=== PATIENT | male | born 1965 | race Caucasian/White ===

== ENCOUNTER 2021-11-14 16:24 | Outpatient (CLI) | payer BC, SELFPAY ==
[2021-11-14 21:26] LABS: Albumin* 4.7 g/dL (3.3-5.0); Chloride* 102 mmol/L (96-114); Potassium* 4.2 mmol/L (3.6-5.1); Sodium* 139 mmol/L (135-149)
[2021-11-14 21:28] LABS: Bilirubin Total* 0.5 mg/dL (0.1-1.5); Carbon Dioxide* 26 mmol/L (20-32); Creatinine* 1.3 mg/dL (0.5-1.5); Estimated Glomerular Filt Rate 65 ml/min
[2021-11-14 21:29] LABS: Alanine Aminotransferase* 17 U/L (4-50); Alkaline Phosphatase* 78 U/L (40-150); Aspartate Amino Transferase* 25 U/L (12-35); Blood Urea Nitrogen* 19 mg/dL (7-30); Calcium* 9.2 mg/dL (8.4-10.6); Glucose* 95 mg/dL (60-115); Total Protein* 7.5 g/dL (6.0-8.3)
== END 2021-11-14 16:25 | disposition home or self-care (01) ==
PROVIDERS: PCP Family Medicine; Visit Provider Family Medicine
DX: R53.83 Other fatigue (principal); E03.9 Hypothyroidism, unspecified; E78.00 Pure hypercholesterolemia, unspecified; F41.8 Other specified anxiety disorders; R73.03 Prediabetes
CPT/HCPCS: 80053; 84443

== ENCOUNTER 2022-11-14 11:25 | Outpatient (CLI) | payer BC, SELFPAY ==
--- OUTSIDE RECORDS SUMMARY | 2022-11-15 12:16 | XMS_ITS | Continuity of Care Document ---
Author Name Unknown Organization [facility] Address [address] [address] [place] [address] Phone Care Team Providers Care Import Coordinator Name Role Phone Unavailable Unavailable Unavailable Advance Directives Directive Yes / No Effective Date File Name No Information Encounters Encounter Description Practice Location Reason(s) For Visit Diagnoses Date Provider Providers Copied on Encounter [facility], [address] [address], [place], [place], [id number], tel:[phone] [facility] No Information No Information Referring Provider: Barby Sherman MD, [address] [place] [address], [id number]. tel:[phone] Family History Family Member Type Diagnosis Age At Onset No Information Payers Payer name Insurance type Covered green party ID Authoriza tion(s) No Information Social History Type Description Quantity Date Captured Comments Sex Male Smoking Status No Information Chief Complaint And Reason For Visit No Information Reason For Referral Reason For Referral No Information History Of Present Illness Encounter Date Complaint History Of Prese nt Illness No Information Functional Status Date Functional Assessmen t No Information Instructions Date Instruction Additional Infor mation No Information Assessments Type Assessment Date No Information Patient Care Teams Name Effective Dates (start - stop) Status Members No Information
== END 2022-11-14 11:26 | disposition home or self-care (01) ==
LOC: NFLDREF 11-15 12:14
PROVIDERS: PCP Family Medicine; Referring Provider Family Medicine; Visit Provider Family Medicine
DX: Z00.00 Encounter for general adult medical examination without abnormal findings (principal); E78.00 Pure hypercholesterolemia, unspecified; E03.9 Hypothyroidism, unspecified; R73.03 Prediabetes; N40.0 Benign prostatic hyperplasia without lower urinary tract symptoms; F43.10 Post-traumatic stress disorder, unspecified; F41.8 Other specified anxiety disorders; R53.83 Other fatigue; Z12.5 Encounter for screening for malignant neoplasm of prostate
CPT/HCPCS: 80053; 80061; 84153; 84443

== ENCOUNTER 2023-02-04 08:33 | Outpatient (CLI) | payer BC, SELFPAY ==
--- OUTSIDE RECORDS SUMMARY | 2023-02-05 06:23 | XMS_ITS | Continuity of Care Document ---
Author Name Unknown Organization [facility] Address [address] [address] [place] [address] Phone Care Team Providers Care Ingot Car Operator Name Role Phone Unavailable Unavailable Unavailable Advance Directives Directive Yes / No Effective Date File Name No Information Encounters Encounter Description Practice Location Reason(s) For Visit Diagnoses Date Provider Providers Copied on Encounter [facility], [address] [address], [place], [place], [id number], tel:[phone] [facility] No Information No Information Referring Provider: Barby Sherman MD, [address] [place] [address], [id number]. tel:[phone] Family History Family Member Type Diagnosis Age At Onset No Information Payers Payer name Insurance type Covered alliance party ID Authoriza tion(s) No Information Social [...]
== END 2023-02-04 08:34 | disposition home or self-care (01) ==
LOC: NFLDREF 02-05 06:22
PROVIDERS: PCP Family Medicine; Referring Provider Family Medicine; Visit Provider Family Medicine
DX: E78.00 Pure hypercholesterolemia, unspecified (principal); R68.82 Decreased libido; E03.9 Hypothyroidism, unspecified
CPT/HCPCS: 80061; 80076; 84270; 84402; 84403; 84443

== ENCOUNTER 2023-03-05 16:24 | Outpatient (CLI) | payer BC, SELFPAY ==
--- OUTSIDE RECORDS SUMMARY | 2023-03-05 16:26 | XMS_ITS | Continuity of Care Document ---
Author Name Unknown Organization [facility] Address [address] [address] [place] [address] Phone Care Team Providers Care Creative Art Therapist Name Role Phone Unavailable Unavailable Unavailable Advance Directives Directive Yes / No Effective Date File Name No Information Encounters Encounter Description Practice Location Reason(s) For Visit Diagnoses Date Provider Providers Copied on Encounter [facility], [address] [address], [place], [place], [id number], tel:[phone] [facility] No Information No Information Referring Provider: Barby Sherman MD, [address] [place] [address], [id number]. tel:[phone] Family History Family Member Type Diagnosis Age At Onset No Information Payers Payer name Insurance type Covered constitution party ID Authoriza tion(s) No Information Social [...]
== END 2023-03-05 16:25 | disposition home or self-care (01) ==
LOC: LKVREF 16:24
PROVIDERS: PCP Family Medicine; Visit Provider Family Medicine
DX: R10.9 Unspecified abdominal pain (principal)
CPT/HCPCS: 80076

== ENCOUNTER 2023-03-17 08:12 | Outpatient (CLI) | payer BC, SELFPAY ==
--- OUTSIDE RECORDS SUMMARY | 2023-03-17 08:17 | XMS_ITS | Clinical Summary ---
Author Name Unknown Organization [facility] Address [address] [place] [address]. [place] [address] Care Team Providers Care Harmonic Analyst Name Role Phone DenitaBarby dhaliwal Sandeep Primary Care Provider [phone] Allergies Active Allergy Reactions Criticality Noted Date Comments Sulfa Antibiotics 11/23/2003 reaction as child Medications Medication Sig Dispensed Refills Start Date End Date Status Fexofenadine HCl (JYOTI PO) Take 180 mg by mouth every morning 0 Active TRAZODONE HCL POIndications:Inso mnia Take 25-50 mg by mouth At Bedtime 0 Active Mirtazapine (REMERON PO) 0 Active CLONAZEPAM PO 0 Active amoxicillin-clavul anate (AUGMENTIN) 875-125 MG per tabletIndications: Infective otitis externa, right Take 1 tablet by mouth 2 times daily 20 tablet 0 12/13/2017 Active Additional Information Patient not taking.Reported on 10/28/2020 metFORMIN (GLUCOPHAGE-XR) 500 MG 24 hr tablet 0 09/04/2020 Active amitriptyline (ELAVIL) 10 MG tablet 0 10/19/2020 Active clonazePAM (KLONOPIN) 0.5 MG tablet 0 10/10/2020 Active benzonatate (TESSALON) 200 MG capsuleIndications :Viral URI Take 1 capsule (200 mg) by mouth 3 times daily as needed for cough 20 capsule 0 10/28/2020 Active Active Problems Problem Noted Date Diagnosed Date Alcohol dependence 06/13/2016 Severe episode of recurrent major depressive disorder, without psychotic features 12/14/2014 Nondependent alcohol abuse, in remission [address] [place] [address] [facility] 11/15/2012 Overview: EMERGENCY CARE PLAN Presenting Problem Signs and Symptoms Treatment Plan Questions or conerns during clinic hours I will call the clinic directly Questions or conerns outside clinic hours I will call the 24 hour nurse line at [phone] Patient needs to schedule an appointment I will call the 24 hour scheduling team at [phone] or clinic directly Same day treatment I will call the clinic first, nurse line if after hours, urgent care and express care if needed Pt does not have an assigned clinic or provider at this time. MENTAL HEALTH 11/09/2012 Suicide attempt 11/07/2012 CARDIOVASCULAR SCREENING; LDL GOAL LESS THAN 160 04/18/2009 Social phobia 11/29/2007 Generalized anxiety disorder 10/06/2005 Depressive disorder, not elsewhere classified Family History Medical History Relation Comments Depression Father anxiety Depression Mother Anesthesia Reaction No family hx of Blood Disease No family hx of C.A.D. No family hx of Cancer - colorectal No family hx of Prostate Cancer No family hx of Relation Status Comments Father (Age 55) small plane cr july Mother Social History Tobacco Use Types Packs/Day Years Used Date Smoking Tobacco: Never Alcohol Use Standard Drinks/Week Comments Yes 0 (1 standard drink = 0.6 oz pur e alcohol) social Adolescent Education Answer Date Record ed Getting School Help Needed Not on file 12/13 Sex and Gender Information Value Date Recorded Sex Assigned at Not on file Gender Identity Not on file Sexual Orientation Not on file Last Filed Vital Signs Vital Sign Reading Time Taken Comments Blood Pressure 124/82 10/28/2020 11:26 AM CDT Pulse 99 10/28/2020 11:26 AM CDT Temperature 37.6 ??C (99.6 ??F) 10/28/2020 11:26 AM C DT Respiratory Rate 16 06/13/2016 6:19 PM CDT Oxygen Saturation 97% 10/28/2020 11:26 AM CDT Inhaled Oxygen Concentration - - Weight 93 kg (205 lb) 10/28/2020 11:26 AM CDT Height 180.3 cm (5' 11) 06/13/2016 12:31 PM CDT Body Mass Index 28.59 06/13/2016 12:31 PM CDT Plan of Treatment Health Maintenance Due Date Last Done Comments ADVANCE CARE PLANNING 1966 ANNUAL REVIEW OF HM ORDERS 1966 CT COLONOGRAPHY 1966 DEPRESSION ACTION PLAN 1966 FIT 1966 FLEX SIG 1966 LIPID 1966 PHQ-9 1966 sDNA (Cologuard) 1966 COVID-19 Vaccine (#1) 1966 Pneumococcal Vaccine: Pediat rics (0 to 5 Years) and At-Risk Patients (6 to 64 Years) (1 - PCV) 1972 COLONOSCOPY 1976 COLORECTAL CANCER SCREENING 1976 HIV SCREENING 1981 HEPATITIS C SCREENING 1984 DTAP/TDAP/TD IMMUNIZATION (1 - Tdap) 11/22/1994 11/21/1994 HEPATITIS B IMMUNIZATION (2 of 3 - 19+ 3-dose series) 10/02/1999 09/04/1999 ZOSTER IMMUNIZATION (1 of 2) 2016 YEARLY PREVENTIVE VISIT 07/31/2018 07/31/2017 INFLUENZA VACCINE (#1) 2022 HPV IMMUNIZATION Aged Out No longer e ligible based on patient's age to complete this topic IPV IMMUNIZATION Aged Out No longer e ligible based on patient's age to complete this topic MENINGITIS IMMUNIZATION Aged Out No l onger eligible based on patient's age to complete this topic RSV MONOCLONAL ANTIBODY Aged Out No l onger eligible based on patient's age to complete this topic Advance Directives For more information, please contact: [phone] Latest Code Status on File Code Status Date Activated Date Inactivated Comments Full Code 11/09/2012 6:11 PM 11/10/2012 6:43 PM Code Status History Code Status Date Activated Date Inactivated Comments Full Code 11/07/2012 5:36 PM 11/09/2012 6:11 PM Care Teams Harmonic Analyst Relationship Specialty Start Date End Date Barby Sherman PCP - General Internal Medicine 06/13/16
--- OUTSIDE RECORDS SUMMARY | 2023-03-17 08:17 | XMS_ITS | Encounter Summary ---
Author Name Unknown Organization [facility] Address [address] [place] [address]. [place] [address] Care Team Providers Care Cargo Worker Name Role Phone Ayan Aguiar MD Primary Care Provider [phone] [facility] [place] Primary [facility] P [facility] Barby Sherman Primary Care Provider [phone] Encounter Details Date Type Department Care Team (Late st Contact Info) Description 09/22/[address] [address] Ayan Aguiar MD [address] [place] [address] [facility] Social History Tobacco Use Types Packs/Day Years Used Date Smoking Tobacco: Never Alcohol Use Standard Drinks/Week Comments Yes 0 (1 standard drink = 0.6 oz pur e alcohol) social Sex and Gender Information Value Date Recorded Sex Assigned at Not on file Gender Identity Not on file Sexual Orientation Not on file documented as of this encounter Plan of Treatment Not on file documented as of this encounter Visit Diagnoses Diagnosis [facility] documented in this encounter Additional Health Concerns Infection Onset Date Last Indicated Resolved Time Rule Out COVID-19 10/28/2020 10/28/2020 10/28/2020 11:29 PM CDT COVID-19 10/28/2020 10/28/2020 11/18/2020 11:4 1 PM CDT documented as of this encounter Care Teams Cargo Worker Relationship Specialty Start Date End Date Ayan Aguiar MD [address] [place] [address] PCP - General 11/23/03 11/11/11 Clinic - [facility] Mont[facility] [address] [place] [address] PCP - General 11/12/11 06/12/16 Barby Sherman [address] [place] [address] PCP - General Internal Medicine 06/13/16 documented as of this encounter
--- OUTSIDE RECORDS SUMMARY | 2023-03-17 08:17 | XMS_ITS | Clinical Summary ---
Author Name Unknown Organization [facility] Address [place], [place] [address] Care Team Providers Care Private Security Guard Name Role Phone Pcp, No Primary Care Provider Unavailabl e Allergies Active Allergy Reactions Criticality Noted Date Comments Mold Extracts *Unknown 11/29/2012 Tested positive molds, on allergy test. Tree Nut *Unknown 11/29/2012 Tested positive Sulfa (Sulfonamide Antibiotics) Nausea And Vomiting 08/31/2007 Medications Medication Sig Dispensed Refills Start Date End Date Status mirtazapine (REMERON) 3.75 mg as quarter tablet Take by mouth. 0 Active metFORMIN (GLUCOPHAGE XR) 500 mg Extended-Release tablet 0 09/04/2020 Active finasteride (PROSCAR) 5 mg tablet Take 5 mg by mouth once daily. 0 11/25/2021 Active clonazePAM (KLONOPIN) 0.5 mg tablet 0 10/10/2020 Active vortioxetine (Trintellix) 5 mg tablet Take 1 Tablet (5 mg) by mouth once daily. 0 12/18/2021 Active sildenafiL, pulm.hypertension, (REVATIO) 20 mg tabletIndications:Ere ctile dysfunction of organic origin Take 2-3 tablets 30 minutes prior to sexual activity. 30 Tablet 1 12/22/2022 Active Active Problems Problem Noted Date Diagnosed Date PTSD (post-traumatic stress disorder) 12/18/2021 Major depressive disorder, r ecurrent, severe without psychotic features 12/14/2014 Alcohol abuse, in remission 02/07/2013 Social phobia 11/29/2007 Generalized anxiety disorder 10/06/2005 Resolved Problems Problem Noted Date Diagnosed Date Resolved Date ALCOHOLISM 11/16/2007 01/17/2008 Major depressive disorder, r ecurrent episode, mild 10/06/2005 01/17/2008 Other and unspecified alcoho l dependence, unspecified drinking behavior 12/18/2021 Encounters Date Type Department Care Team Description 12/22/2022 9:35 AM CDT Office Visit [facility] [address] [place] [address] Bebe Morse PA Erectile Dysfunction (Started x 1 week ) 12/22/2022 Telephone [facility] [address] [place] [address] Bebe Morse PA Medication Management (sildenafil citrate (VIAGRA) 50 mg tablet) 12/22/2022 Travel from Last 3 Months Immunizations Name Administration Dates Next Due Hepatitis B (Adult) 09/04/1999 Td (Age >=7 Years) 11/21/1994 Family History Medical History Relation Name Comments Alcohol/Drug Brother Drug Dependence Seizures Daughter 1 Carie Second, Autism too, multiple diagnoses Good Health Daughter 2 Chari Third Alcohol/Drug Father Alcohol Depende nce Psychiatric illness Father Anxiety Alcohol/Drug Maternal Aunt Psychiatric illness Maternal Aunt Alcohol/Drug Maternal Grandfather Other Maternal Grandfather Galo on's Stroke Maternal Grandfather in 60s Other Maternal Grandmother Psychiatric illness Maternal Grandmother Anxiety Other Mother Fibromyalgia Psychiatric illness Mother Depressi on Alcohol/Drug Paternal Grandfather Psychiatric illness Paternal Uncle Alcohol/Drug Sister Good Health Son Armond Oldest Relation Name Status Comments Brother Daughter 1 Carie Daughter 2 Chari [address] Maternal Aunt Maternal Grandfather Maternal Grandmother Mother Alive Paternal Grandfather Paternal Uncle Sister Son Armond Social History Tobacco Use Types Packs/Day Years Used Date Smoking Tobacco: Never Smokeless Tobacco: Never Tobacco Cessation:Counseling Given: Yes Alcohol Use Standard Drinks/Week Comments Yes 6 (1 standard drink = 0.6 oz pure alcohol) social, around 3-4 drinks twice per week PHQ-2 Answer Date Recorded PHQ-2 TOTAL SCORE 6 12/22/2022 Social Connections Answer Date Recorded Frequency of Communication with Friends and Fami ly 0 12/22/2022 Financial Resource Strain Answer Date R ecorded Difficulty of Paying Living Expenses 3 12/22/2022 Difficulty of Paying Living Expenses Not on file 12/22/2022 Food Insecurity Answer Date Recorded Worried About Running Out of Food in the Last Ye ar 1 12/22/2022 Transportation Needs Answer Date Record ed Lack of Transportation (Medical) 1 12/22/2022 Housing Stability Answer Date Recorded Unable to Pay for Housing in the Last Year 1 12/22/2022 Sex and Gender Information Value Date Recorded Sex Assigned at Not on file Gender Identity Not on file Sexual Orientation Not on file Obstetrics History Last Filed Vital Signs Vital Sign Reading Time Taken Comments Blood Pressure 118/76 12/22/2022 9:21 AM CDT Pulse 82 12/22/2022 9:21 AM CDT Temperature 36.5 ??C (97.7 ??F) 04/24/2014 4:53 PM CS T Respiratory Rate 16 12/17/2011 4:22 PM CDT Oxygen Saturation 97% 12/18/2021 9:26 AM CDT Inhaled Oxygen Concentration - - Weight 92.9 kg (204 lb 14.4 oz) 12/22/2022 9:21 AM CDT Height 180 cm (5' 10.87) 12/22/2022 9:21 AM CDT Body Mass Index 28.68 12/22/2022 9:21 AM CDT Plan of Treatment Health Maintenance Due Date Last Done Comments COVID-19 vaccine series (#1) 1966 Tdap 1977 Tetanus booster 11/21/2004 11/21/1994 Colonoscopy through age 75 2011 Lipids for age 45-75 06/13/2013 06/13/2008, 12/06/2007, 11/16/2007 Zoster (shingles) series for age 50+ (1 of 2) 2016 Influenza for age 50-64 11/07/2022 BMI (ht and wt on same day) for age 18+ 12/23/2023 12/22/2022, 12/18/2021 Depression screening for age 12+ 12/23/2023 12/22/2022, 12/22/2022, 03/28/2022, Additional history exists HIV for age 15-65 Completed 12/23/2013 Hepatitis C screening for age 18-79 Completed 12/23/2013 Pneumococcal series for age 6-64 Aged Out No longer eligible based on patient's age to complete this topic Advance Directives Documents on File Type Date Recorded Patient Sharepoint Admin Expl anation Healthcare Directive 09/01/2007 March 24, 1997 Latest Code Status on File Code Status Date Activated Date Inactivated Comments Full Code 08/31/2007 3:51 PM 09/01/2007 7:07 PM Care Teams Private Security Guard Relationship Specialty Start Date End Date Pcp, No . PCP - General 12/18/21
--- OUTSIDE RECORDS SUMMARY | 2023-03-17 08:17 | XMS_ITS | Encounter Summary ---
Author Name Unknown Organization [facility] Address [address] [place] [address]. [place] [address] Care Team Providers Care Water Treatment Plant Operator Name Role Phone Ayan Aguiar MD Primary Care Provider [phone] [facility] [place] [facility] Barby Sherman Primary Care Provider [phone] Encounter Details Date Type Department Care Team (Late st Contact Info) Description 08/31/2007 [address] [place] [address] Ayan Aguiar MD [address] [place] [address] 08/31/07 H&P/DISCHARGE SUMMARY Social History Tobacco Use Types Packs/Day Years [...] as of this encounter Visit Diagnoses Diagnosis [facility] documented in this encounter Additional Health Concerns Infection Onset Date Last Indicated Resolved Time Rule Out COVID-19 10/28/2020 10/28/2020 10/28/2020 11:29 PM CDT COVID-19 10/28/2020 10/28/2020 11/18/2020 11:4 1 PM CDT documented as of this encounter Care Teams Water Treatment Plant Operator Relationship Specialty Start Date End Date Ayan Aguiar MD [address] [facility] [address] PCP - General 11/23/03 11/11/11 Clinic - Her[facility] Montilla [address] [place] [address] PCP - General 11/12/11 06/12/16 Barby Sherman [address] [place] [address] [place] [address] PCP - General Internal Medicine 06/13/16 documented as of this encounter
--- OUTSIDE RECORDS SUMMARY | 2023-03-17 08:17 | XMS_ITS | Referral Summary ---
Author Name Unknown Organization [facility] Address [address] [place] [address]. [place] [address] Care Team Providers Care Cook Helper Name Role Phone DenitaBarby dhaliwal Sandeep Primary Care Provider [phone] Allergies Active Allergy Reactions Criticality Noted Date [...] features 12/14/2014 Nondependent alcohol abuse, in remission [address] [place] [address] Half-Way 11/15/2012 Overview: EMERGENCY CARE PLAN Presenting Problem Signs and Symptoms Treatment Plan Questions or conerns during clinic hours I will call the clinic directly Questions or conerns outside clinic hours I will call the 24 hour nurse line at [phone] Patient needs to schedule an appointment I will call the 24 hour scheduling team at [phone] or clinic directly Same day treatment I will call the clinic first, nurse line if after hours, urgent care and express care if needed Pt does not have an assigned clinic or provider at this time. MENTAL HEALTH 11/09/2012 Suicide attempt 11/07/2012 CARDIOVASCULAR SCREENING; LDL GOAL LESS THAN 160 04/18/2009 Social phobia 11/29/2007 Generalized anxiety disorder 10/06/2005 Depressive disorder, not elsewhere classified Social History Tobacco Use Types Packs/Day Years [...] 06/13/2016 12:31 PM CDT Plan of Treatment Not on file Advance Directives For more information, please contact: [phone] Latest Code Status on File Code Status Date Activated Date Inactivated Comments Full Code 11/09/2012 6:11 PM 11/10/2012 6:43 PM Code Status History Code Status Date Activated Date Inactivated Comments Full Code 11/07/2012 5:36 PM 11/09/2012 6:11 PM Care Teams Cook Helper Relationship Specialty Start Date End Date Barby Sherman PCP - General Internal Medicine 06/13/16
--- OUTSIDE RECORDS SUMMARY | 2023-03-17 08:17 | XMS_ITS | Clinical Summary ---
Author Name Unknown Organization [facility] Address [address] [place] [address] Care Team Providers Care Husbandry Person Name Role Phone Ric Pérez MD Primary Care Provider [phone] Source Comments You are receiving this document as you are listed as the primary care provider,follow-up provider, or the patient has been referred to you for consultation.This is in compliance with the Medicare andMedicaid EHR Incentive Program,which states Providers who transition their patient to another setting of careor provider of care or refers their patient to another provider of care shouldprovide summary care record for each transition of care or referral. [facility] Allergies Active Allergy Reactions Criticality Noted Date Comments Nuts Unknown 10/10/2015 Sulfa Antibiotics Nausea And Vomiting 6 I think vomiting. I don't really remember it was when I was little. Medications Medication Sig Dispensed Refills Start Date End Date Status mirtazapine (REMERON) 7.5 MG tablet Take 7.5 mg by mouth every evening. Takes half of a tablet 0 Active Active Problems Problem Noted Date Diagnosed Date Major depressive disorder, r ecurrent, severe without psychotic features 12/14/2014 Alcohol abuse, in remission 02/07/2013 Social phobia 11/29/2007 Generalized anxiety disorder 10/06/2005 Immunizations Name Administration Dates Next Due HepB Adult (Engerix-B, 20+ yrs, 3 dose series) 0 09/04/1999 Td 11/21/1994 Family History Medical History Relation Name Comments Alcohol Abuse Father Cancer Mother Heart Disease Mother Stroke Paternal Grandmother Relation Name Status Comments Father Mother Brother Alive Maternal Grandfather Maternal Grandmother Paternal Grandfather Paternal Grandmother Sister Alive Social History Tobacco Use Types Packs/Day Years Used Date Smoking Tobacco: Never Smokeless Tobacco: Never Alcohol Use Standard Drinks/Week Comments No 0 (1 standard drink = 0.6 oz pur e alcohol) Sex and Gender Information Value Date Recorded Sex Assigned at Not on file Gender Identity Not on file Sexual Orientation Not on file Last Filed Vital Signs Vital Sign Reading Time Taken Comments Blood Pressure 120/80 02/08/2018 3:44 PM SOLE CEMENTER Pulse 80 02/08/2018 3:44 PM SOLE CEMENTER Temperature 37.2 ??C (99 ??F) 02/08/2018 3:44 PM SOLE CEMENTER Respiratory Rate 16 10/14/2015 8:00 AM CDT Oxygen Saturation 99% 10/14/2015 8:00 AM CDT Inhaled Oxygen Concentration - - Weight 102.9 kg (226 lb 12.8 oz) 02/08/2018 3:44 PM SOLE CEMENTER Height 181.6 cm (5' 11.5) 07/31/2017 2:25 PM CD T Body Mass Index 31.19 07/31/2017 2:25 PM CDT Plan of Treatment Health Maintenance Due Date Last Done Comments Hep C Screening (Preventive Services) 1966 COVID-19 Vaccine (#1) 1966 HIV Screening (Preventive Services) 1982 DTaP/Tdap/Td (1 - Tdap) 11/22/1994 11/21/1994 HepB (2) 10/02/1999 09/04/1999 Zoster/Shingles (1 of 2) 2016 Adult Preventive Visit 07/31/2018 07/31/2017 PSA Screening Discussion 07/31/2018 07/31/2017 FIT Colon Cancer Screening 09/29/2018 09/29/2017 Cholesterol 07/31/2022 07/31/2017 Influenza (#1) 2022 HepA Aged Out No longer eligi ble based on patient's age to complete this topic Hib Aged Out No longer eligi ble based on patient's age to complete this topic IPV (Polio) Aged Out No longer eligi ble based on patient's age to complete this topic MCV4 Aged Out No longer eligi ble based on patient's age to complete this topic Pneumococcal Aged Out No longer eligi ble based on patient's age to complete this topic Advance Directives Latest Code Status on File Code Status Date Activated Date Inactivated Comments Full Code 10/10/2015 8:16 PM 10/14/2015 5:27 PM Care Teams Husbandry Person Relationship Specialty Start Date End Date Ric Pé[place] [address] [place] [address] PCP - General Family Practice 07/15/17
--- NOTE | 2023-03-17 08:45 | CRLHL7_ITS ---
For Patients: As a result of the Century Cures Act, medical imaging exams and procedure reports are released immediately into your electronic medical record. You may view this report before your referring provider. If you have questions, please contact your health care provider. INDICATION: Right upper quadrant pain. TECHNIQUE: Limited abdominal ultrasound. FINDINGS: Liver: No obvious mass. Gallbladder: No significant stones. Common bile duct: 4 mm. Pancreas: Partial visualization, no obvious abnormality. Right kidney: Unremarkable 10.5 cm. Aorta: Normal caliber. IVC: No visualized thrombus. No sonographic Dye sign. IMPRESSION: Unremarkable right upper quadrant ultrasound exam. Dictated by Tucker Moore MD @ 03/19/2023 9:40:44 AM (Electronically Signed)
== END 2023-03-17 08:13 | disposition home or self-care (01) ==
LOC: US 08:13
PROVIDERS: PCP Family Medicine; Visit Provider Family Medicine
DX: R10.11 Right upper quadrant pain (principal)
CPT/HCPCS: 76705

== ENCOUNTER 2023-04-21 11:25 | Outpatient (CLI) | payer BC, SELFPAY | END 2023-04-21 11:26 | disposition home or self-care (01) | LOC: LKVREF 11:39 | PROVIDERS: PCP Family Medicine; Visit Provider Family Medicine | DX: R30.0 Dysuria (principal); N39.0 Urinary tract infection, site not specified | CPT/HCPCS: 87491; 87591 ==

== ENCOUNTER 2024-05-31 08:32 | Outpatient (CLI) | payer BC, SELFPAY | END 2024-05-31 08:33 | disposition home or self-care (01) | PROVIDERS: PCP Family Medicine; Visit Provider Family Medicine | DX: E03.9 Hypothyroidism, unspecified (principal); R68.82 Decreased libido; E78.00 Pure hypercholesterolemia, unspecified; Z12.5 Encounter for screening for malignant neoplasm of prostate | CPT/HCPCS: 80053; 80061; 84270; 84402; 84403; 84443; G0103 ==

== ENCOUNTER 2024-07-26 09:17 | Outpatient (CLI) | payer BC, SELFPAY ==
--- NOTE | 2024-07-26 11:18 | P.ANES_ITS ---
Anesthesia Charges Start Date/Time Anesthesia Start Date: 07/26/24 Anesthesia Start Time: 10:48 Stop Date/Time Anesthesia Stop Date: 07/26/24 Anesthesia Stop Time: 11:16 Coding CPT Codes CPT Codes: ANES LWR INTST SCR COLSC - [id number] ([id number]) P2 - PATIENT W/MILD SYST DISEASE, QZ - ENTRANCE GUARD SVC W/O HYPERBARIC WELDER DIVER BY
--- NOTE | 2024-07-26 11:18 | W.ANESCHARGE ---
Anesthesia Charges Start Date/Time Anesthesia Start Date: 07/26/24 Anesthesia Start Time: 10:48 Stop Date/Time Anesthesia Stop Date: 07/26/24 Anesthesia Stop Time: 11:16 Coding CPT Codes CPT Codes: ANES LWR INTST SCR COLSC - [id number] ([id number]) P2 - PATIENT W/MILD SYST DISEASE, QZ - TECHNICAL INTERNSHIP SVC W/O RIB TRIM SEPARATOR BY
== END 2024-07-26 09:18 | disposition home or self-care (01) ==
LOC: OP CLINIC 09:17
PROVIDERS: PCP Family Medicine; Visit Provider Surgery
DX: Z12.11 Encounter for screening for malignant neoplasm of colon (principal); D12.3 Benign neoplasm of transverse colon; R19.5 Other fecal abnormalities
CPT/HCPCS: 00812; 45385; 88305; J2704

== ENCOUNTER 2024-12-12 10:48 | Outpatient (CLI) | payer BC, SELFPAY | END 2024-12-12 10:49 | disposition home or self-care (01) | LOC: NFLDREF 12-25 04:20 | PROVIDERS: PCP Family Medicine; Referring Provider Family Medicine; Visit Provider Family Medicine | DX: R53.83 Other fatigue (principal); R79.89 Other specified abnormal findings of blood chemistry; R68.82 Decreased libido | CPT/HCPCS: 80061; 80076; 84270; 84402; 84403 ==

== ENCOUNTER 2024-12-23 10:33 | Outpatient (CLI) | payer BC, SELFPAY | END 2024-12-23 10:34 | disposition home or self-care (01) | LOC: NFLDREF 12-24 17:49 | PROVIDERS: PCP Family Medicine; Referring Provider Family Medicine; Visit Provider Family Medicine | DX: R97.20 Elevated prostate specific antigen [PSA] (principal) | CPT/HCPCS: G0103 ==

== ENCOUNTER 2025-02-28 13:50 | Outpatient (CLI) | payer BC, SELFPAY ==
[2025-02-28] MEDS: PERFLUTREN LIPID MICROSPHERES 2 ML VIAL IVP (14:36)
[2025-02-28 15:13] VITALS: BP 132/76; PULSE 82; RESP 20; O2SAT 95
--- NOTE | 2025-02-28 15:14 | W.PM.STED ---
Stress Test Note Date Date of test: 02/28/25 Providers Primary care provider: Colt Dias Stress test physician: Suraj Hill Stress Test Note Stress test ordered: Stress Echo Indication for test: Chest pain Stress test medicine: Definity Results discussion: This very nice patient presents for the above test, after discussion the risks benefits and side effects of the test, patient would like to continue. Cardiac stress test medical history form is reviewed entirely. Pretest EKG shows normal sinus rhythm, with a ventricular rate of 66 blood pressure 118 on 72. Following standard [facility] protocol he is exercised for a duration of 10 minutes 21 seconds him about equivalent 12.1 Mets with a maximum heart rate of 156, no dysrhythmias are noted, no ST wave changes suggestive of ischemia, preliminary read by emissions testing and repair technician and myself is negative. Conditioning felt to be good Impression: Negative electrographic portion of stress echo, subjectively negative Follow up suggested: Await echo portion, which will be read by Cardiology, clinical correlation with this will be needed patient recovered normally discharge from this the institution.
== END 2025-02-28 13:51 | disposition home or self-care (01) ==
PROVIDERS: PCP Family Medicine; Visit Provider Family Medicine
DX: R07.9 Chest pain, unspecified (principal)
CPT/HCPCS: 93016; 93325; 93351; Q9957